=== PATIENT | male | born 2000 | race Caucasian/White ===

== ENCOUNTER 2024-05-28 20:29 | Emergency (ER) | payer OTHER ==
[2024-05-28] MEDS ORDERED: Lidocaine 1% PF 5 ML VIAL ONE (23:32)
[2024-05-28] MEDS ORDERED: Boostrix 0.5 ML (Tdap) VIAL (>/=7 yrs of age) ONE (23:48)
[2024-05-28] MEDS ORDERED: Bacitracin 1 PK ONE ×2 (23:57)
== END 2024-05-29 00:25 | disposition home or self-care (01) ==
LOC: ERS 20:29
DX: S01.411A Laceration without foreign body of right cheek and temporomandibular area, initial encounter (principal); Z23 Encounter for immunization; W50.4XXA Accidental scratch by another person, initial encounter; Y93.67 Activity, basketball
CPT/HCPCS: 12011; 90471; 90715